=== PATIENT | male | born 1955 | race Two or more races ===

== ENCOUNTER 2018-04-08 16:03 | Emergency (ER) | payer SELFPAY ==
[~2018-04-08] VITALS: Ht 152.4 cm; Wt 49.9 kg
[2018-04-08] MEDS ORDERED: LIDOCAINE 1% INJ 50 ML MDV IJ ONE (17:29)
[2018-04-08] MEDS ORDERED: TDAP [DIPH/PERTUSSIS/TET] 0.5 ML VIAL IM ONE (17:51)
[2018-04-08] MEDS ORDERED: ACETAMINOPHEN ES 500 MG TABLET ONE (17:51)
[2018-04-08] MEDS: ACETAMINOPHEN 325 MG TABLET PO ONE (17:56)
[2018-04-08] MEDS: TDAP [DIPH/PERTUSSIS/TET] 0.5 ML VIAL IM ONE (17:57)
[2018-04-08 18:27] VITALS: BP 145/74
--- NOTE | 2018-04-08 18:27 | NUR ---
dressing placed and finger splint applied to L thumb
== END 2018-04-08 18:28 | disposition home or self-care (01) ==
LOC: ER 16:10
DX: S61.012A Laceration without foreign body of left thumb without damage to nail, initial encounter (principal); W26.8XXA Contact with other sharp object(s), not elsewhere classified, initial encounter; Y93.89 Activity, other specified; Y92.89 Other specified places as the place of occurrence of the external cause; Y99.0 Civilian activity done for income or pay
CPT/HCPCS: 12001; 90471; 90715; 99283; A4606; A6402; J3490; Z7610

== ENCOUNTER 2018-04-10 20:06 | Emergency (ER) | payer SELFPAY ==
[~2018-04-10] VITALS: Ht 154.9 cm; Wt 56.7 kg
[2018-04-10 20:42] VITALS: BP 179/89
== END 2018-04-10 21:02 | disposition home or self-care (01) ==
LOC: ER 20:15
DX: S61.012D Laceration without foreign body of left thumb without damage to nail, subsequent encounter (principal); X58.XXXD Exposure to other specified factors, subsequent encounter
CPT/HCPCS: A4606; A6402; Z7502; Z7610

== ENCOUNTER 2018-04-15 19:50 | Emergency (ER) | payer SELFPAY ==
[~2018-04-15] VITALS: Ht 160 cm; Wt 56.7 kg
[2018-04-15 20:08] VITALS: BP 151/88
== END 2018-04-15 21:26 | disposition home or self-care (01) ==
LOC: ER 19:54
DX: S61.012D Laceration without foreign body of left thumb without damage to nail, subsequent encounter (principal); F17.200 Nicotine dependence, unspecified, uncomplicated; X58.XXXD Exposure to other specified factors, subsequent encounter
CPT/HCPCS: A4606; Z7502; Z7610